=== PATIENT | female | born 1970 | race Caucasian/White ===

== ENCOUNTER 2016-08-27 23:39 | Emergency (ER) | payer MEDICARE ==
[2016-08-27 23:56] VITALS: PULSE 77; RESP 18; TEMP 97.6; O2SAT 100
[2016-08-28 00:12] VITALS: BP 144/82
[2016-08-28] MEDS ORDERED: Sodium Chloride 0.9% 1,000 ML IV STA (00:15)
--- NOTE | 2016-08-28 00:17 | ED PDOC ---
HPI: Abdomen Time Seen by Provider: 08/28/16 00:00 Chief Complaint (Nursing): Abdominal Pain Chief Complaint (Provider): abd pain History Per: Patient History/Exam Limitations: no limitations Onset/Duration Of Symptoms: Hrs Outside of [place] travel?: No Current Symptoms Are (Timing): Still Present Severity: Severe Location Of Pain/Discomfort: RLQ, Other (right flank ) Additional Complaint(s): 46yo female w/ PMHx including kidney stones, chronic back problems presents to the ED with c/o acute onset right sided abdominal pain since 1930. Denies dysuria, blood in urine, fever, chills, or any other medical complaints. Patient states she has had this pain before but states usually more in her back and feels it more in her abdomen today. Of note, patient states she takes extended release morphine 30mg every 8 hours daily. Past Medical History Reviewed: Historical Data, Nursing Documentation, Vital Signs Vital Signs: Last Vital Signs Temp 97.6 F 08/27/16 23:52 Pulse 77 08/27/16 23:52 Resp 18 08/27/16 23:52 BP 144/82 08/28/16 00:12 Pulse Ox 100 08/28/16 03:06 - Medical History PMH: Back Problems (chronic low back pain), Hyperlipidemia, Kidney Stones - Surgical History Surgical History: Back Surgery, Tonsillectomy - Family History Family History: States: Diabetes - Social History Current smoker - smoking cessation education provided: No Alcohol: None Drugs: Denies - Home Medications Home Medications: Ambulatory Orders Medication Instructions Recorded Oxycodone HCl [Roxicodone] 15 mg PO BID PRN 12/28/15 tiZANidine [Zanaflex] 4 mg PO BID 12/28/15 Morphine [Morphine Extended 30 mg PO Q8 #0 tabsr 12/30/15 Release Tab] Docusate [Colace] 100 mg PO BID #20 cap 05/01/16 Polyethylene Glycol 3350 [Miralax] 17 gm PO BID #20 packet 05/01/16 Sulfamethoxazole/Trimethoprim 1 tab PO BID #14 tab 05/01/16 [Bactrim DS 800 mg-160 mg] Ibuprofen [Motrin] 600 mg PO Q6H PRN #20 tab 08/28/16 Nitrofurantoin Macrocrystals 100 mg PO BID #14 cap 08/28/16 [Macrobid] Tamsulosin [Flomax] 0.4 mg PO DAILY #14 cap 08/28/16 - Allergies Allergies/Adverse Reactions: Allergies Allergy/AdvReac Type Severity Reaction Status Date / Time No Known Allergies Allergy Verified 12/27/15 05:51 Review of Systems ROS Statement: Except As Marked, All Systems Reviewed And Found Negative Constitutional: Negative for: Fever, Chills Gastrointestinal: Positive for: Abdominal Pain (right sided ) Genitourinary Female: Negative for: Dysuria, Hematuria Physical Exam - Reviewed Nursing Documentation Reviewed: Yes Vital Signs Reviewed: Yes - Physical Exam Appears: Positive for: Uncomfortable (screaming, moaning ), In Acute Distress ( painful distress) Head Exam: Positive for: ATRAUMATIC, NORMAL INSPECTION, NORMOCEPHALIC Skin: Positive for: Normal Color, Warm, Dry Eye Exam: Positive for: Normal appearance, EOMI, PERRL ENT: Positive for: Normal ENT Inspection Neck: Positive for: Normal, Painless ROM, Supple Cardiovascular/Chest: Positive for: Regular Rate, Rhythm. Negative for: Murmur , Tachycardia Respiratory: Positive for: Normal Breath Sounds. Negative for: Wheezing, Respiratory Distress Gastrointestinal/Abdominal: Positive for: Soft, Tenderness (RLQ and right flank ) Back: Positive for: Normal Inspection. Negative for: L CVA Tenderness, R CVA Tenderness Extremity: Positive for: Normal ROM. Negative for: Deformity, Swelling Neurologic/Psych: Positive for: Alert, Oriented - Laboratory Results Result Diagrams: 08/28/16 00:22 08/28/16 00:22 - ECG O2 Sat by Pulse Oximetry: 100 Pulse Ox Interpretation: Normal (RA) Medical Decision Making Medical Decision Makin: Impression: right sided abdominal pain Plan: CT A/P Labs IVF, Pepcid 20mg IVP, Toradol 30mg IV, Zofran 4mg IV reassess 0107: CT A/P impression: 2.4 mm obstructing stone, right ureterovesical junction; nonobstructing 7.5 mm right lower pole renal stone. 0140: Potassium noted to be low at 3. K-dur ordered. 0258: Patient feels better and tolerated PO. states she thinks she passed stone in the bathroom just now. Rx for macrobid, flomax, and motrin provided. Dx is kidney stone. Patient is aware of results. pt insturcted to take motrin for pain Instructed to f/u w/ her PCP in 1-2 days as well as urologist. Advised to return to the ED with any worsening or concerning symptoms. Scribe Attestation: Documented by Filiberto Egan acting as a scribe for Anselmo Flores MD. Provider Scribe Attestation: All medical record entries made by the Scribe were at my direction and personally dictated by me. I have reviewed the chart and agree that the record accurately reflects my personal performance of the history, physical exam, medical decision making, and the department course for this patient. I have also personally directed, reviewed, and agree with the discharge instructions and disposition. Disposition - Clinical Impression Clinical Impression: Kidney stone - Patient ED Disposition Is Patient to be Admitted: No Counseled Patient/Family Regarding: Studies Performed, Diagnosis, Need For Followup, Rx Given - Disposition Referrals: Sona Bass MD [Medical Doctor] - Disposition: Routine/Home Disposition Time: 02:35 Condition: IMPROVED Additional Instructions: follow up with your primary doctor in 1-2 days as well as urologist as instructed return to the ED with any worsening or concerning symptoms. Prescriptions: Ibuprofen [Motrin] 600 mg PO Q6H PRN #20 tab PRN Reason: Pain, Moderate (4-7) Nitrofurantoin Macrocrystals [Macrobid] 100 mg PO BID #14 cap Tamsulosin [Flomax] 0.4 mg PO DAILY #14 cap Instructions: Kidney Stones (ED)
[2016-08-28 00:33] LABS: BASO % 0.4 % (0.0-2.0); EOS % 0.9 % (0.0-4.0); HEMATOCRIT 46.7 % (34.0-47.0); LYMPH # 1.3 K/uL (1.0-4.3); LYMPH % 22.2 % (20.0-40.0); MEAN CELL VOLUME 93.5 fl (81.0-99.0); MEAN CORPUSCULAR HEMOGLOBIN 31.2 pg (27.0-31.0); MEAN CORPUSCULAR HGB CONC 33.3 g/dL (33.0-37.0); MEAN PLATELET VOLUME 9.5 fl (7.2-11.7); MONO # 0.5 K/uL (0.0-0.8); MONO % 8.2 % (0.0-10.0); NEUT % 68.3 % (50.0-75.0); RED CELL DISTRIBUTION WIDTH 13.1 % (11.5-14.5); WHITE BLOOD COUNT 5.8 K/uL (4.8-10.8)
[2016-08-28 00:54] LABS: ALB/GLOB RATIO 1.3 (1.0-2.1); ALKALINE PHOSPHATASE 84 U/L (38-126); ALT/SGPT 33 U/L (9-52); AST/SGOT 31 U/L (14-36); BILIRUBIN,TOTAL 0.2 mg/dl (0.2-1.3); BLOOD UREA NITROGEN 19 mg/dl (7-17); CALCIUM 9.4 mg/dL (8.4-10.2); CARBON DIOXIDE 26 mmol/L (22-30); CHLORIDE 99 mmol/L (98-107); GFR AFRICAN-AMERICAN > 60; GLUCOSE,RANDOM 116 mg/dL (65-105); LIPASE 73 U/L (23-300); SODIUM 142 mmol/l (132-148); TOTAL PROTEIN 8.9 G/DL (6.3-8.2)
--- NOTE | 2016-08-28 01:06 | CT ---
EXAM: CT Abdomen and Pelvis Without Intravenous Contrast CLINICAL HISTORY: 46 years old, female; Pain; Abdominal pain; Flank; Right; Prior surgery; Surgery date: 6+ months; Surgery type: Back surgery; Patient HX: Rt sided pain R/O stone TECHNIQUE: Axial computed tomography images of the abdomen and pelvis without intravenous contrast. This CT exam was performed using one or more of the following dose reduction techniques: automated exposure control, adjustment of the mA and/or kV according to patient size, and/or use of iterative reconstruction technique. Coronal and sagittal reformatted images were created and reviewed. EXAM DATE/TIME: 08/28/2016 12:15 AM COMPARISON: CT - ABD PELVIS W/O PO OR IV CONT 05/01/2016 3:06:42 AM FINDINGS: Lower thorax: Heart size is normal. There is minimal dependent atelectasis at the lung bases ABDOMEN: Liver: There is a small cyst in the left lobe of the liver. Liver is otherwise unremarkable. Gallbladder and bile ducts: unremarkable Pancreas: unremarkable Spleen: unremarkable Adrenals: unremarkable Kidneys and ureters: There is a 7.5 mm nonobstructing right lower pole renal stone. There are additional faint calcifications in the right kidney. There is mild right pelvocaliectasis and ureterectasis. There is a 2.4 mm stone at the right ureterovesical junction. Left kidney and ureter are unremarkable. Stomach and bowel: Stomach is distended. Rotation is normal. Small bowel is mildly distended with fluid and air. There is no obstruction. Terminal ileum is unremarkable. Appendix is unremarkable. There is moderate stool throughout the colon. Appendix: See stomach and bowel PELVIS: Bladder: unremarkable Reproductive: Uterus and adnexal structures are unremarkable. ABDOMEN and PELVIS: Intraperitoneal space:There is no free air or free fluid. Bones/joints: There are degenerative changes in the spine. There is laminectomy and fusion L4/L5/S1. There are cages in the L4-5 and L5-S1 disc spaces. Soft tissues: There is a small fat containing umbilical hernia. Vasculature: There are calcified phleboliths. Vascular structures are unremarkable. Lymph nodes: There is no pathologic adenopathy. IMPRESSION: 2.4 mm obstructing stone, right ureterovesical junction; nonobstructing 7.5 mm right lower pole renal stone Additional findings as described above.
[2016-08-28] MEDS ORDERED: Potassium Chloride 20 mEq ER Tab PO ONE ×2 (01:29→01:39)
[2016-08-28 03:17] LABS: RBC URINE 9 /hpf (0-3); URINE BACTERIA RARE (<OCC); URINE BILIRUBIN NEGATIVE (NEGATIVE); URINE BLOOD LARGE (NEGATIVE); URINE COLOR COLORLESS (YELLOW); URINE GLUCOSE (UA) NEG (Normal); URINE KETONE NEGATIVE (NEGATIVE); URINE LEUKOCYTE ESTERASE NEG Leu/uL (Negative); URINE PROTEIN 30 mg/dL (NEGATIVE); URINE UROBILINOGEN 0.2-1.0 mg/dL (0.2-1.0); WBC URINE 1 /hpf (0-5)
== END 2016-08-28 03:45 | disposition home or self-care (01) ==
LOC: H.ER 23:39
DX: N20.0 Calculus of kidney (principal)
CPT/HCPCS: 74176; 80053; 81003; 81025; 83690; 85025; 96374; 99284; G0480; J1885; J2405; J7040

== ENCOUNTER 2016-09-01 22:00 | Emergency (ER) | payer MEDICARE ==
[2016-09-01 22:29] VITALS: BP 147/81; PULSE 83; RESP 20; TEMP 98.4; O2SAT 99
[2016-09-01] MEDS ORDERED: Sodium Chloride 0.9% 1,000 ML IV STA (22:39)
--- NOTE | 2016-09-01 22:44 | ED PDOC ---
HPI: Back Time Seen by Provider: 09/01/16 22:32 Chief Complaint (Nursing): GI Problem Chief Complaint (Provider): Back pain History Per: Patient History/Exam Limitations: no limitations Onset/Duration Of Symptoms: Days (Today) Current Symptoms Are (Timing): Still Present Additional Complaint(s): Pt. with back pain starting today morning. Also abd pain. Nausea, vomit, nonbloody. Pain similar to few days ago when diagnosed with kidney stone that she passed possibly in the ER. States she has blood in her urine and dysuria. No diarrhea. Has chronic back pain on morphine and oxycodone. No numbness, tingles, weakness, incontinence, constipation. Past Medical History Reviewed: Nursing Documentation, Vital Signs Vital Signs: Last Vital Signs Temp 98.4 F 09/01/16 22:27 Pulse 83 09/01/16 22:27 Resp 20 09/01/16 22:27 BP 147/81 09/01/16 22:27 Pulse Ox 99 09/01/16 22:27 - Medical History PMH: Back Problems (chronic low back pain), Hyperlipidemia, Kidney Stones - Surgical History Surgical History: Back Surgery, Tonsillectomy - Family History Family History: States: Unknown Family Hx - Living Arrangements Living Arrangements: With Family - Social History Alcohol: None Drugs: Denies - Home Medications Home Medications: Ambulatory Orders Medication Instructions Recorded Oxycodone HCl [Roxicodone] 15 mg PO BID PRN 12/28/15 tiZANidine [Zanaflex] 4 mg PO BID 12/28/15 Morphine [Morphine Extended 30 mg PO Q8 #0 tabsr 12/30/15 Release Tab] Docusate [Colace] 100 mg PO BID #20 cap 05/01/16 Polyethylene Glycol 3350 [Miralax] 17 gm PO BID #20 packet 05/01/16 Sulfamethoxazole/Trimethoprim 1 tab PO BID #14 tab 05/01/16 [Bactrim DS 800 mg-160 mg] Ibuprofen [Motrin] 600 mg PO Q6H PRN #20 tab 08/28/16 Nitrofurantoin Macrocrystals 100 mg PO BID #14 cap 08/28/16 [Macrobid] Tamsulosin [Flomax] 0.4 mg PO DAILY #14 cap 08/28/16 - Allergies Allergies/Adverse Reactions: Allergies Allergy/AdvReac Type Severity Reaction Status Date / Time No Known Allergies Allergy Verified 09/01/16 22:29 Review of Systems ROS Statement: Except As Marked, All Systems Reviewed And Found Negative Gastrointestinal: Positive for: Nausea, Vomiting, Abdominal Pain Genitourinary Female: Positive for: Hematuria Musculoskeletal: Positive for: Back Pain Physical Exam - Reviewed Nursing Documentation Reviewed: Yes Vital Signs Reviewed: Yes - Physical Exam Appears: Positive for: Non-toxic, No Acute Distress Head Exam: Positive for: ATRAUMATIC, NORMAL INSPECTION, NORMOCEPHALIC Skin: Positive for: Normal Color, Warm, DRY Eye Exam: Positive for: EOMI, Normal appearance, PERRL ENT: Positive for: Normal ENT Inspection Neck: Positive for: Normal, Painless ROM Cardiovascular/Chest: Positive for: Regular Rate, Rhythm Respiratory: Positive for: CNT, Normal Breath Sounds Gastrointestinal/Abdominal: Positive for: Bowel Sounds, Soft, Tenderness (mild diffuse) Back: Positive for: Normal Inspection, R CVA Tenderness. Negative for: L CVA Tenderness Extremity: Positive for: Normal ROM. Negative for: Tenderness, Pedal Edema Neurologic/Psych: Positive for: Alert, Oriented - Laboratory Results Result Diagrams: 09/01/16 22:50 - ECG O2 Sat by Pulse Oximetry: 99 Pulse Ox Interpretation: Normal - Progress ED Course And Treament: 1050: Will get second CT as pt. has stone 7.5mm that could be coming out causing pain. 2340: Dr. Diaz to take over care. Fu on CT and labs. Disposition - Clinical Impression Clinical Impression: Abdominal pain, Back pain - Patient ED Disposition Is Patient to be Admitted: Transfer of Care - Disposition Disposition: Transfer of Care Disposition Time: 23:41 Condition: STABLE Patient Signed Over To: Hallie Diaz
[2016-09-01 22:58] LABS: BASO % 0.7 % (0.0-2.0); EOS % 0.6 % (0.0-4.0); HEMATOCRIT 43.1 % (34.0-47.0); LYMPH # 0.2 K/uL (1.0-4.3); LYMPH % 5.4 % (20.0-40.0); MEAN CELL VOLUME 92.3 fl (81.0-99.0); MEAN CORPUSCULAR HEMOGLOBIN 30.9 pg (27.0-31.0); MEAN CORPUSCULAR HGB CONC 33.4 g/dL (33.0-37.0); MEAN PLATELET VOLUME 9.3 fl (7.2-11.7); MONO # 0.3 K/uL (0.0-0.8); MONO % 7.9 % (0.0-10.0); NEUT # 3.4 K/uL (1.8-7.0); NEUT % 85.4 % (50.0-75.0); PLATELET COUNT 168 K/uL (130-400); RED CELL DISTRIBUTION WIDTH 12.4 % (11.5-14.5)
[2016-09-01 23:11] LABS: ALB/GLOB RATIO 1.2 (1.0-2.1); ALKALINE PHOSPHATASE 76 U/L (38-126); ALT/SGPT 43 U/L (9-52); AST/SGOT 33 U/L (14-36); BILIRUBIN,TOTAL 0.5 mg/dl (0.2-1.3); BLOOD UREA NITROGEN 13 mg/dl (7-17); CALCIUM 9.2 mg/dL (8.4-10.2); CARBON DIOXIDE 26 mmol/L (22-30); CHLORIDE 99 mmol/L (98-107); GFR AFRICAN-AMERICAN > 60; GLUCOSE,RANDOM 100 mg/dL (65-105); LIPASE 28 U/L (23-300); POTASSIUM 3.9 MMOL/L (3.6-5.0); SODIUM 138 mmol/l (132-148); TOTAL PROTEIN 8.1 G/DL (6.3-8.2)
--- NOTE | 2016-09-02 00:17 | ED PDOC ---
"- Laboratory Results Result Diagrams: 09/01/16 22:50 09/01/16 22:50 - ECG O2 Sat by Pulse Oximetry: 99 (RA) Pulse Ox Interpretation: Normal - Progress Re-evaluation Time: 01:04 Condition: Re-examined, Improved Medical Decision Making Medical Decision Making: Time: 0000 Initial impression: Flank Pain Initial plan: --0000: Transfer of care from Dr. Machado Pending CT Abdomen --0016: CT Abdomen Report EXAM: CT Abdomen and Pelvis Without Intravenous Contrast CLINICAL HISTORY: 46 years old, female; Pain; Abdominal pain; Generalized; Additional info: R/O stone TECHNIQUE: Axial computed tomography images of the abdomen and pelvis without intravenous contrast. This CT exam was performed using one or more of the following dose reduction techniques: automated exposure control, adjustment of the mA and/or kV according to patient size, and/ or use of iterative reconstruction technique. Coronal and sagittal reformatted images were created and reviewed. EXAM DATE/TIME: Exam ordered 09/01/2016 10:39 PM COMPARISON: CT - ABD PELVIS W/O PO OR 08/28/2016 12:31:51 AM FINDINGS: Lower thorax: Lung bases with no evidence of acute infection. ABDOMEN: Liver: Liver with a hypoattenuating finding 10 mm series 3 image 26 lateral segment left lobe, similar to previous of May 01, 2016, no change in size since July 2015. Gallbladder and bile ducts: Unremarkable. No calcified stones. No ductal dilation. Pancreas: Unremarkable. No ductal dilation. Spleen: Unremarkable. No splenomegaly. Adrenals: Unremarkable. No mass. Kidneys and ureters: There is comparison to previous CT of 4 days prior, August, at which time there was an obstructing right ureterovesical junction stone with multiple additional findings. Kidneys. There is interval improvement in right-sided hydronephrosis. Redemonstration of a calculus within the right renal pelvis, nonobstructing, the previously seen right ureterovesical junction stone is no longer visualized. Series 3 image 69 suggestion of some additional calcifications within the right collecting system versus parenchyma. Stomach and bowel: No abdominal wall hernias containing bowel. Increased formed fecal content, please correlate with her constipation may contribute to symptoms. No obstruction. No mucosal thickening. Appendix: No findings to suggest acute appendicitis. ALKA PIZARRO | Final Radiology Report CONFIDENTIALITY STATEMENT This report is intended only for use by the referring physician, and only in accordance with law. If you received this in error, call [phone]. Page 2 of 2 PELVIS: Bladder: Bladder is partly collapsed limiting evaluation. No stones. Reproductive: Left adnexal cystic findings series 3 image 1:15 which may be functional, please correlate with menstrual status, noting series 3 image 146 a small fatty attenuation finding not clearly from uterus versus left adnexa and to possibly representing a small teratoma or fatty degeneration of a fibroid. This was not identified with certainty in July 2015, no evident change since April 2016 however. ABDOMEN and PELVIS: Intraperitoneal space: No free air. No significant fluid collection. Bones/joints: Musculoskeletal findings are unchanged with redemonstration of devices within the L4- 5 and L5-S1 disc spaces, redemonstration of mild scoliosis and degenerative changes, laminectomy discectomy at L4-L5 and L5-S1 were discussed in greater detail on study of April 14, 2016 which is not presently available for review. Soft tissues: See above. Vasculature: Scattered atherosclerotic calcifications. No abdominal aortic aneurysm. Lymph nodes: Unremarkable. No enlarged lymph nodes. IMPRESSION: Interval improvement in right hydronephrosis with interval passage of the previously documented right ureterovesical junction stone, please correlate for infection however. Persistent stone disease. Left adnexal cystic findings which may be functional, with possible small teratoma versus fatty degeneration of a fibroid, please correlate with patient's menstrual status when considering followup. Constipation. The absence of intravenous contrast greatly limits evaluation of the parenchymal organs. The absence of oral contrast limits evaluation of the gastrointestinal tract. Scribe Attestation: Documented by Suri Gary, acting as a scribe for Hallie Diaz MD MD Scribe Attestation: All medical record entries made by the Scribe were at my direction and personally dictated by me. I have reviewed the chart and agree that the record accurately reflects my personal performance of the history, physical exam, medical decision making, and the department course for this patient. I have also personally directed, reviewed, and agree with the discharge instructions and disposition. Disposition - Clinical Impression Clinical Impression: Abdominal pain, Back pain, Kidney stone - POA Present On Arrival: None - Disposition Referrals: Your, pain management [Other] Disposition: Routine/Home Disposition Time: 01:04 Condition: GOOD Additional Instructions: Follow up with your pain management doctor within 1 week. Follow up with your urologist in 2-3 days. Instructions: Kidney Stones (ED), Chronic Back Pain (ED) - PA / VICE PRESIDENT QUALITY / Resident Statement MD/DO has reviewed & agrees with the documentation as recorded."
[2016-09-02 00:35] LABS: NEUTROPHIL 87 % (42-75); TOTAL CELLS COUNTED 100
[2016-09-02 00:36] LABS: LARGE PLATELETS PRESENT
== END 2016-09-02 01:22 | disposition home or self-care (01) ==
LOC: H.ER 22:00
DX: R10.2 Pelvic and perineal pain (principal); M54.5 Low back pain; N20.0 Calculus of kidney; Z87.442 Personal history of urinary calculi
CPT/HCPCS: 74176; 80053; 81025; 83690; 85025; 96374; 99283; J1885; J2405; J7040